=== PATIENT | female | born 1995 | race Asian ===

== ENCOUNTER 2019-05-10 22:48 | Emergency (ER) | payer SELFPAY ==
[~2019-05-10] VITALS: Ht 162.6 cm; Wt 57.2 kg
[2019-05-11] MEDS ORDERED: IBUPROFEN 800 MG TAB PO ONE (01:15)
[2019-05-11] MEDS ORDERED: ACETAMINOPHEN 500 MG TAB PO ONE (01:15)
[2019-05-11 04:00] VITALS: BP 116/74
== END 2019-05-11 04:03 | disposition home or self-care (01) ==
LOC: ER 22:53
DX: S52.591A Other fractures of lower end of right radius, initial encounter for closed fracture (principal); V00.311A Fall from snowboard, initial encounter; Y93.23 Activity, snow (alpine) (downhill) skiing, snowboarding, sledding, tobogganing and snow tubing; Y99.8 Other external cause status; Y92.89 Other specified places as the place of occurrence of the external cause
CPT/HCPCS: 29125; 73090; 73110